=== PATIENT | female | born 1970 | race Caucasian/White ===

== ENCOUNTER 2017-06-30 14:04 | Emergency (ER) | payer BC ==
[2017-06-30 14:21] VITALS: BP 131/71
[2017-06-30] MEDS ORDERED: Ondansetron 4 MG Tab.DIS PO ONE (14:28)
[2017-06-30] MEDS ORDERED: SUMAtriptan 6 MG/0.5 ML SDV SUBCUT ONE (14:28)
--- NOTE | 2017-06-30 15:24 | EDM.PDOC ---
[id number] 4d MIGRAINE Time Seen by Provider: 06/30/17 14:30 Source of Information: Reports: Patient History Limitations: Reports: No Limitations - History of Present Illness INITIAL COMMENTS - FREE TEXT/NARRATIVE: 46-year-old female with chronic migraines, usually respond well to Imitrex therapy but this morning she tried 2 doses of Imitrex and had no significant relief. She has significant nausea but no vomiting. She had an aura prior to the onset of a migraine, it is right-sided which is typically her "worst side". She has no peripheral weakness or other concerning symptoms. Onset: Today Duration: Hour(s): (Headache has been present for several hours) Location: Reports: Other (Right temporal) Severity: Moderate - Related Data Allergies Allergy/AdvReac Type Severity Reaction Status Date / Time Penicillins Allergy Rash Verified 06/30/17 14:11 Home Meds: Home Meds Amitriptyline [Elavil] 06/30/17 [History] Baclofen 06/30/17 [History] Omeprazole Magnesium [Prilosec] 06/30/17 [History] Ondansetron [Zofran ODT] 06/30/17 [History] SUMAtriptan [Imitrex] 06/30/17 [History] Past Medical History Neurological History: Reports: Migraines - Past Surgical History GI Surgical History: Reports: Cholecystectomy Social & Family History - Tobacco Use Smoking Status *Q: Never Smoker ED ROS GENERAL - Review of Systems Review Of Systems: See Below Constitutional: Denies: Fever, Chills HEENT: Reports: Vision Change (Brief aura prior to headache initiation) Respiratory: Reports: No Symptoms Cardiovascular: Reports: No Symptoms GI/Abdominal: Reports: Nausea. Denies: Abdominal Pain, Vomiting : Reports: No Symptoms Musculoskeletal: Denies: Neck Pain Skin: Reports: No Symptoms Neurological: Reports: Headache. Denies: Paresthesia, Trouble Speaking, Change in Speech Psychiatric: Reports: No Symptoms - Physical Exam Exam: See Below Exam Limited By: No Limitations General Appearance: Alert, Anxious, Mild Distress Eye Exam: Bilateral Eye: PERRL Head Exam: Atraumatic Respiratory/Chest: No Respiratory Distress Neuro Exam (Abbreviated): Alert, Oriented Psychiatric: Normal Affect, Normal Mood Skin Exam: Warm, Dry Course - Vital Signs Last Recorded V/S: Last Vital Signs Temp 97.3 F 06/30/17 14:18 Pulse 75 06/30/17 14:18 Resp 14 06/30/17 14:18 BP 131/71 06/30/17 14:18 Pulse Ox - Orders/Labs/Meds Meds: Medications Discontinued Medications Generic Name Dose Route Start Last Admin Trade Name Jorge PRN Reason Stop Dose Admin Ondansetron HCl 4 mg 06/30/17 14:28 06/30/17 14:33 Zofran Odt PO 06/30/17 14:29 4 mg ONETIME ONE Administration Sumatriptan Succinate 6 mg 06/30/17 14:28 06/30/17 14:34 Imitrex SUBCUT 06/30/17 14:29 6 mg ONETIME ONE Administration - Re-Assessments/Exams Free Text/Narrative Re-Assessment/Exam: 07/01/17 07:08 Patient was given 4 mg of sublingual Zofran and 6 mg of subcutaneous Imitrex. Within 30 minutes she had excellent relief and was ready to be discharged. She was given a prescription for 2 Imitrex subcutaneous injection doses and 5 sublingual Zofran doses. She will discuss a different method of using Imitrex with her primary provider when she returns home next week. Departure - Departure Time of Disposition: 16:20 Disposition: Home, Self-Care 01 Condition: Good Clinical Impression: Migraine - Discharge Information Instructions: Recurrent Migraine Headache, [id number] Referrals: PCP,None [Primary Care Provider] - Forms: ED Department Discharge Care Plan Goals: Rest, use medications as prescribed, and recheck with your primary care provider when you return home. Return sooner if worsening or concerns.
== END 2017-06-30 16:21 | disposition home or self-care (01) ==
LOC: JP.ED 14:04
DX: G43.909 Migraine, unspecified, not intractable, without status migrainosus (principal); Z90.49 Acquired absence of other specified parts of digestive tract; Z88.0 Allergy status to penicillin
CPT/HCPCS: 96372; 99283; A9270; J3030